=== PATIENT | male | born 1950 | race Caucasian/White ===

== ENCOUNTER 2019-11-18 16:24 | Emergency (ER) | payer OTHER ==
[~2019-11-18] VITALS: Ht 170.2 cm; Wt 77.6 kg
[2019-11-18] MEDS ORDERED: DEPAKOTE500 MG PO (16:36)
--- NOTE | 2019-11-18 18:22 | EKG ---
[facility] [address] [place], [place] [address] Signed Sinus bradycardia Otherwise normal ECG No previous ECGs available Confirmed by YFN RICK MD ([id number] on 11/18/2019 6:22:14 PM Electronically Signed By: YFN RICK MD 11/18/19 182 PATIENT NAME: JAYCOB GUY Electrocardiogram DATE OF : 52 PHYSICIAN: YFN RICK MD REPORT #: [id number] REPORT IS CONFIDENTIAL AND NOT TO BE RELEASED WITHOUT AUTHORIZATION
== END 2019-11-18 19:54 | disposition home or self-care (01) ==
LOC: ED 16:24
DX: R46.89 Other symptoms and signs involving appearance and behavior (principal); Z87.891 Personal history of nicotine dependence; Z79.899 Other long term (current) drug therapy
CPT/HCPCS: 70450; 80053; 80164; 81001; 82140; 84484; 85025; 93005; 93010; 99285-25

== ENCOUNTER 2019-11-23 00:11 | Emergency (ER) | payer OTHER ==
[~2019-11-23] VITALS: Ht 170.2 cm; Wt 77.6 kg
[~2019-11-23 00:11] MED LIST: DEPAKOTE500 MG PO
--- OUTSIDE RECORDS SUMMARY | 2019-11-23 00:14 | XMS ---
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 Ze has no Care Guidelines for this patient. Blad[place] VISIT COUNT (12 MO.) [address] [facility] [place]. TOTAL 2 NOTE: Visits indicate total known visits. ED/C VISIT TRACKING (12 MO.) 11/23/2019 00:[address] [facility] [place] TYPE: Emergency COMPLAINT: - ALTERED LOC 11/18/2019 16:24 [facility] [place] TYPE: Emergency COMPLAINT: - ALTERED LOC DIAGNOSES: - Other symptoms and signs involving appearance and behavior - Personal history of nicotine dependence - Disorientation, unspecified - Other intermediate project manager (current) drug therapy INPATIENT VISIT TRACKING (12 MO.) No inpatient visits to display in this time frame [email or web address]
[2019-11-23] MEDS ORDERED: MELATONIN1 MG PO (00:34)
[2019-11-23] MEDS ORDERED: LACTULOSE10 GM/15 M PO (00:35)
== END 2019-11-23 01:49 | disposition home or self-care (01) ==
LOC: ED 00:11
DX: U07.1 COVID-19 (principal); R41.82 Altered mental status, unspecified; F31.9 Bipolar disorder, unspecified; Z87.891 Personal history of nicotine dependence; Z79.899 Other long term (current) drug therapy
CPT/HCPCS: 80053; 80164; 80178; 82140; 83735; 85025; 99284